=== PATIENT | female | born 1965 | race Caucasian/White ===

== ENCOUNTER 2016-12-08 07:26 | Emergency (ER) | payer OTHER ==
[~2016-12-08] VITALS: Ht 154.9 cm; Wt 136.1 kg
[~2016-12-08 07:26] MED LIST: AMBIEN 10 MG TA10 MG PO; AMITRIPTYLINE H10 M1; ARTHRITIS PAIN650 M3; BIAXIN 500 MG500 M1; BUSPIRONE HCL10 MG; BYSTOLIC 5 MG5 M1; CELEXA 10 MG TA10 MG PO; CLONAZEPAM; CLONAZEPAM 1 MG1 M1; COLESTIPOL HCL1 G1 PO; DEPO-PROVERA; DOXYCYCLINE 10100 M1 PO; IBUPROFEN 600600 M1 PO; ISOMETHEPT-DIC1 EACH PO; NORCO 5-325 TA1 EACH PO; PANTOPRAZOLE SO40 M1 PO; PHENERGAN 25 MG25 M1 PO; PROMS25 WY RECTAL; SINGULAIR 10 MG10 M1; TOPIRAMATE ER150 MG PO; TOPROL XL100 MG PO; TUSSINMAX15 MG/5 ML; WELLBUTRIN XL150 M1; ZEGERID 20 MG1 EACH; ZOFRAN ODT4 MG PO; ZOLPIDEM TARTRA10 MG; [UNRECOGNIZED DRUG - OTHER]; [UNRECOGNIZED DRUG - OTHER] PO
[2016-12-08 07:57] LABS: ABSOLUTE NEUTROPHILS 4.7 thou/uL (1.4-8.2); BASOPHILS 1.1 % (0.0-2.0); EOSINOPHILS 1.7 % (0.0-3.0); HEMATOCRIT 42.7 % (37.0-47.0); HEMOGLOBIN 14.2 gm/dL (12.0-15.0); LYMPHOCYTES 34.8 % (24.0-44.0); MCH 29.1 pg (26.0-34.0); MCHC 33.2 g/dL (28.0-37.0); MCV 87.4 fL (80.0-100.0); MONOCYTES 6.1 % (1.0-8.0); PLATELET COUNT 280 thou/uL (150-400); POLYS 56.3 % (36.0-66.0); RBC 4.88 mil/uL (4.20-5.00); RDW 15.3 % (10.5-14.5); WBC 8.3 thou/uL (4.0-11.0)
[2016-12-08 08:05] LABS: CALCIUM 9.4 mg/dL (8.5-10.1); CREATININE 0.9 mg/dL (0.6-1.0); POTASSIUM 3.8 mmol/L (3.5-5.1)
[2016-12-08 08:07] LABS: MANUAL DIFF NO
[2016-12-08 08:11] LABS: ALBUMIN 3.8 g/dL (3.4-5.0); TOTAL BILIRUBIN 0.4 mg/dL (<0.1-1.0); TOTAL PROTEIN 7.6 g/dL (6.4-8.2)
[2016-12-08 09:32] LABS: URINE BILIRUBIN NEGATIVE (Negative); URINE BLOOD TRACE (Negative); URINE COLOR YELLOW; URINE GLUCOSE-RANDOM* NEGATIVE (Negative); URINE KETONES NEGATIVE (Negative); URINE LEUKOCYTES-REFLEX 1+ (Negative); URINE PROTEIN (DIPSTICK) TRACE (Negative); URINE SPECIFIC GRAVITY <= 1.005 (1.003-1.035); URINE UROBILINOGEN 0.2 E.U./dl (0.2-1.0)
[2016-12-08] MEDS ORDERED: LOPERAMIDE 2 MG2 M1 PO (09:54)
[2016-12-08] MEDS ORDERED: BENTYL 20 MG TA20 M1 PO (09:54)
[2016-12-08] MEDS ORDERED: ZOFRAN ODT4 MG PO (09:54)
[2016-12-08] MEDS ORDERED: NORCO 5-325 TA1 EACH PO (09:54)
[2016-12-08 10:08] LABS: CASTS None Seen /LPF (None Seen); CRYSTALS None Seen /LPF (None Seen); SQUAMOUS 4-10 Moderate /LPF (0-3)
[2016-12-08 10:09] LABS: TRANSITIONAL EPITHEL CELL 0-3 Few /LPF (None Seen); URINE WBC-REFLEX 6-15 Few /HPF (0-5)
[2016-12-08 10:10] LABS: URINE RBC 0-2 Rare /HPF (0-2)
[2016-12-08 10:18] VITALS: BP 120/56
[2016-12-08] MEDS ORDERED: LOPRESSOR100 M1 PO (10:23)
[2016-12-08] MEDS ORDERED: ZEGERID 40 MG1 EACH PO (10:24)
[2016-12-08] MEDS ORDERED: AMITRIPTYLINE H25 M2 PO (10:25)
== END 2016-12-08 10:28 | disposition home or self-care (01) ==
LOC: ER 07:26
PROVIDERS: Emergency Medicine
DX: K52.9 Noninfective gastroenteritis and colitis, unspecified (principal); I10 Essential (primary) hypertension; Z90.49 Acquired absence of other specified parts of digestive tract; Z88.1 Allergy status to other antibiotic agents; Z88.0 Allergy status to penicillin; Z88.2 Allergy status to sulfonamides

== ENCOUNTER 2016-12-10 07:26 | Inpatient (IN) | payer OTHER ==
[~2016-12-10] VITALS: Ht 154.9 cm; Wt 136.1 kg
[2016-12-10] VITALS (7 sets, daily range): BP systolic 107–153; BP diastolic 59–93
[~2016-12-10 07:26] MED LIST changes: +AMITRIPTYLINE H25 M2 PO; +BENTYL 20 MG TA20 M1 PO; +LOPERAMIDE 2 MG2 M1 PO; +LOPRESSOR100 M1 PO; +ZEGERID 40 MG1 EACH PO
[2016-12-10 08:11] LABS: URINE BILIRUBIN NEGATIVE (Negative); URINE BLOOD NEGATIVE (Negative); URINE COLOR YELLOW; URINE GLUCOSE-RANDOM* NEGATIVE (Negative); URINE KETONES NEGATIVE (Negative); URINE LEUKOCYTES-REFLEX 2+ (Negative); URINE PROTEIN (DIPSTICK) TRACE (Negative); URINE SPECIFIC GRAVITY 1.015 (1.003-1.035)
[2016-12-10 08:17] LABS: ABSOLUTE NEUTROPHILS 5.2 thou/uL (1.4-8.2); BASOPHILS 0.9 % (0.0-2.0); HEMATOCRIT 42.9 % (37.0-47.0); HEMOGLOBIN 13.8 gm/dL (12.0-15.0); LYMPHOCYTES 34.7 % (24.0-44.0); MCH 28.3 pg (26.0-34.0); MCHC 32.2 g/dL (28.0-37.0); MCV 87.9 fL (80.0-100.0); MONOCYTES 5.9 % (1.0-8.0); PLATELET COUNT 238 thou/uL (150-400); POLYS 56.5 % (36.0-66.0); RBC 4.88 mil/uL (4.20-5.00); RDW 14.8 % (10.5-14.5); WBC 9.3 thou/uL (4.0-11.0)
[2016-12-10 08:21] LABS: ANION GAP 12 mmol/L (7-16); BUN 12 mg/dL (7-18); CALCIUM 9.2 mg/dL (8.5-10.1); CHLORIDE 103 mmol/L (98-107); CO2 26 mmol/L (21-32); CREATININE 0.9 mg/dL (0.6-1.0); GLUCOSE 120 mg/dL (74-106); MANUAL DIFF NO; SODIUM 141 mmol/L (136-145)
[2016-12-10 08:23] LABS: POTASSIUM 4.6 mmol/L (3.5-5.1)
[2016-12-10 08:27] LABS: ALBUMIN 3.4 g/dL (3.4-5.0); ALKALINE PHOSPHATASE 82 U/L (46-116); DIRECT BILIRUBIN < 0.1 mg/dL (<0.1-0.3); SGOT 32 U/L (15-37); SGPT 34 U/L (30-65); TOTAL BILIRUBIN 0.2 mg/dL (<0.1-1.0); TOTAL PROTEIN 7.2 g/dL (6.4-8.2)
[2016-12-10 08:44] LABS: CASTS None Seen /LPF (None Seen); SQUAMOUS 4-10 Moderate /LPF (0-3)
[2016-12-10 08:45] LABS: CRYSTALS None Seen /LPF (None Seen); TRANSITIONAL EPITHEL CELL 0-3 Few /LPF (None Seen)
[2016-12-10 08:46] LABS: URINE RBC None Seen /HPF (0-2)
[2016-12-11 03:30] VITALS: BP 128/77
[2016-12-11 04:05] LABS: CALCIUM 8.7 mg/dL (8.5-10.1); CREATININE 0.8 mg/dL (0.6-1.0); POTASSIUM 3.8 mmol/L (3.5-5.1)
[2016-12-11 04:12] LABS: ABSOLUTE NEUTROPHILS 3.3 thou/uL (1.4-8.2); BASOPHILS 0.5 % (0.0-2.0); EOSINOPHILS 2.2 % (0.0-3.0); HEMATOCRIT 36.4 % (37.0-47.0); HEMOGLOBIN 11.9 gm/dL (12.0-15.0); LYMPHOCYTES 49.8 % (24.0-44.0); MCH 28.8 pg (26.0-34.0); MCHC 32.7 g/dL (28.0-37.0); MCV 88.1 fL (80.0-100.0); MONOCYTES 6.8 % (1.0-8.0); PLATELET COUNT 229 thou/uL (150-400); POLYS 40.7 % (36.0-66.0); RBC 4.13 mil/uL (4.20-5.00); WBC 8.2 thou/uL (4.0-11.0)
[2016-12-11 04:14] LABS: MANUAL DIFF NO
[2016-12-11 08:15] VITALS: BP 148/92
[2016-12-11 14:15] VITALS: BP 137/67
[2016-12-11 20:00] VITALS: BP 155/90
[2016-12-12 04:00] VITALS: BP 171/94
[2016-12-12 08:07] VITALS: BP 122/76
[2016-12-12] MEDS ORDERED: TRAMADOL 50 MG50 MG PO (09:48)
[2016-12-12] MEDS ORDERED: KEFLEX500 MG PO (09:48)
[2016-12-12 10:20] VITALS: BP 122/76
== END 2016-12-12 11:11 | disposition home or self-care (01) | DRG 690 ==
LOC: ER 07:26 → 3N 10:19 → EROBS 10:19 → 3N 10:55
PROVIDERS: Emergency Medicine; Family Medicine
DX: N12 Tubulo-interstitial nephritis, not specified as acute or chronic (principal); E87.2 Acidosis; Z68.43 Body mass index [BMI] 50.0-59.9, adult; I10 Essential (primary) hypertension; E66.9 Obesity, unspecified; Z90.49 Acquired absence of other specified parts of digestive tract; Z79.899 Other long term (current) drug therapy; Z88.0 Allergy status to penicillin; Z88.1 Allergy status to other antibiotic agents; Z88.2 Allergy status to sulfonamides
CPT/HCPCS: 10094

== ENCOUNTER 2019-09-19 08:56 | Emergency (ER) | payer OTHER ==
[~2019-09-19] VITALS: Ht 154.9 cm; Wt 149.7 kg
[~2019-09-19 08:56] MED LIST changes: +KEFLEX500 MG PO; +TRAMADOL 50 MG50 MG PO
[2019-09-19] MEDS ORDERED: NEURONTIN 300M300 M2 PO (09:06)
[2019-09-19] MEDS ORDERED: HYDROCHLOROTHIA25 M2 PO (09:06)
[2019-09-19] MEDS ORDERED: EFFER-K 10 MEQ10 ME1 PO (09:07)
[2019-09-19] MEDS ORDERED: FLOMAX0.4 MG PO (09:07)
[2019-09-19] MEDS ORDERED: VENTOLIN HFA 1818 GM INH (09:07)
[2019-09-19 10:21] LABS: ABSOLUTE NEUTROPHILS 3.5 thou/uL (1.4-8.2); BASOPHILS 0.8 % (0.0-2.0); EOSINOPHILS 2.8 % (0.0-3.0); HEMATOCRIT 40.6 % (37.0-47.0); HEMOGLOBIN 13.5 gm/dL (12.0-15.0); MCH 28.3 pg (26.0-34.0); MCHC 33.2 g/dL (28.0-37.0); MCV 85.2 fL (80.0-100.0); MONOCYTES 6.3 % (1.0-8.0); PLATELET COUNT 301 thou/uL (150-400); POLYS 46.1 % (36.0-66.0); RBC 4.76 mil/uL (4.20-5.00); RDW 17.3 % (10.5-14.5); WBC 7.6 thou/uL (4.0-11.0)
[2019-09-19 10:38] LABS: ANION GAP 7 mmol/L (7-16); BUN 14 mg/dL (7-18); CALCIUM 9.1 mg/dL (8.5-10.1); CHLORIDE 101 mmol/L (98-107); CO2 32 mmol/L (21-32); GLUCOSE 132 mg/dL (74-106); POTASSIUM 3.2 mmol/L (3.5-5.1); SODIUM 140 mmol/L (136-145)
[2019-09-19 10:48] LABS: ALBUMIN 3.5 g/dL (3.4-5.0); DIRECT BILIRUBIN 0.3 mg/dL (<0.1-0.2); SGOT 27 U/L (15-37); SGPT 38 U/L (30-65); TOTAL BILIRUBIN 0.2 mg/dL (<0.1-1.0); TOTAL PROTEIN 7.5 g/dL (6.4-8.2); TROPONIN-I <0.06 ng/mL (<0.06)
[2019-09-19] MEDS ORDERED: GUAIFEN-CODEINE10 ML PO (11:27)
[2019-09-19 11:40] VITALS: BP 102/57
--- NOTE | 2019-09-20 07:58 | EKG ---
[facility] [place] [address] ELECTROCARDIOGRAM REPORT Name: ALVIN CRANE Room #: DEP [facility]#: [id number] Admission: 09/19/19 Attend Phys: Discharge: 09/19/19 Date of : 61 Report #: [id number] THIS REPORT FOR: cc: Primo Das Steven F. DO Lundgren, Craig H. MD [facility] THIS REPORT FOR: //name// [facility] ED Test Date: 2019-09-19 Test Time: 09:54:02 Pat Name: ALVIN CRANE Department: Room: Gender: Supervisor Partial Denture Department: elvin : 1965 Requested By: Lisa Ambrose Order Number: [id number] MD: Brenden Daly Measurements Intervals [place] Rate: 69 P: 16 NC: 206 QRS: -29 QRSD: 129 T: -27 QT: 438 QTc: 470 Interpretive Statements Sinus rhythm Borderline prolonged NC interval Left bundle branch block No previous ECG available for comparison Electronically Signed On 09-20-2019 7:56:39 CDT by Brenden Daly [email or web address] <ELECTRONICALLY SIGNED> By: Brenden Daly MD, FACC 09/20/19 [id number] Brenden Daly MD, [facility] /EPI
== END 2019-09-19 11:40 | disposition home or self-care (01) ==
LOC: ER 08:56
PROVIDERS: Emergency Medicine
DX: J06.9 Acute upper respiratory infection, unspecified (principal); I10 Essential (primary) hypertension; Z20.828 Contact with and (suspected) exposure to other viral communicable diseases; Z90.49 Acquired absence of other specified parts of digestive tract; Z88.0 Allergy status to penicillin; Z88.1 Allergy status to other antibiotic agents; Z88.2 Allergy status to sulfonamides